=== PATIENT | male | born 1935 | race Caucasian/White ===

== ENCOUNTER 2017-04-28 15:49 | Emergency (ER) | payer MEDICARE ==
[2017-04-28] MEDS ORDERED: ELIMITE 5%60 GM T (15:52)
== END 2017-04-28 16:11 | disposition other institution (70) ==
LOC: ED 15:49
DX: R21 Rash and other nonspecific skin eruption (principal)

== ENCOUNTER 2017-06-06 14:55 | Emergency (ER) | payer MEDICARE ==
[~2017-06-06] VITALS: Ht 177.8 cm; Wt 86.2 kg
[~2017-06-06 14:55] MED LIST: ELIMITE 5%60 GM T
[2017-06-06 15:40] LABS: BASO % 0.5 % (0.0-1.0); EOS # 0.3 10*3/uL (0.0-0.4); EOS % 5.5 % (1.0-4.0); HEMATOCRIT 42.9 % (42.0-52.0); HEMOGLOBIN 13.7 g/dl (14.0-18.0); LYMPH % 48.2 % (27.0-41.0); MEAN CELL VOLUME 91.3 fl (80.0-94.0); MEAN CORPUSCULAR HGB 29.1 pg (27.0-31.0); MEAN CORPUSCULAR HGB CONC 31.9 g/dl (33.0-37.0); MEAN PLATELET VOLUME 9.9 fl (9.6-12.3); MONO # 0.5 10*3/uL (0.1-1.0); MONO % 7.3 % (3.0-9.0); NEUT # 2.4 10*3/uL (2.3-7.9); NEUT % 38.2 % (47.0-73.0); PLATELET COUNT AUTOMATED 182 10*3/uL (130-400); RED CELL DISTRI WIDTH 13.3 % (0-14.5); WHITE BLOOD COUNT 6.2 10*3/uL (4.8-10.8)
[2017-06-06 15:56] LABS: ALBUMIN 3.1 gm/dl (3.1-4.5); ALKALINE PHOSPHATASE 91 U/L (45-117); BUN 17 mg/dl (7-24); CHLORIDE 103 mmol/L (98-107); CREATININE 1.33 mg/dL (0.70-1.30); POTASSIUM 4.7 mmol/L (3.5-5.1); SGOT/AST 43 IU/L (3-35); SGPT/ALT 47 U/L (12-78); SODIUM 141 mmol/L (136-145); TOTAL PROTEIN 7.5 gm/dL (6.4-8.2)
[2017-06-06 16:04] LABS: BILIRUBIN NEGATIVE (NEGATIVE); BLOOD NEGATIVE (NEGATIVE); CLARITY CLEAR (CLEAR); COLOR YELLOW (YELLOW); GLUCOSE NEGATIVE (NEGATIVE); KETONE NEGATIVE (NEGATIVE); LEUKO ESTERASE NEGATIVE (NEGATIVE); NITRITE NEGATIVE (NEGATIVE); SPECIFIC GRAVITY 1.015 (1.005-1.030)
[2017-06-06 16:14] LABS: BACTERIA TRACE
== END 2017-06-06 18:01 | disposition home or self-care (01) ==
LOC: ED 14:55
PROVIDERS: Nurse Practitioner Family
DX: R73.9 Hyperglycemia, unspecified (principal)

== ENCOUNTER 2017-09-15 19:54 | Inpatient (IN) | payer MEDICARE ==
[~2017-09-15] VITALS: Ht 178 cm; Wt 101.3 kg
[2017-09-15 20:09] VITALS: BP 105/50
[2017-09-15 20:17] LABS: BASO % 0.3 % (0.0-1.0); EOS # 0.1 10*3/uL (0.0-0.4); HEMOGLOBIN 13.6 g/dl (14.0-18.0); LYMPH # 1.2 10*3/uL (1.3-4.4); LYMPH % 20.9 % (27.0-41.0); MEAN CELL VOLUME 88.6 fl (80.0-94.0); MEAN CORPUSCULAR HGB 28.7 pg (27.0-31.0); MEAN CORPUSCULAR HGB CONC 32.4 g/dl (33.0-37.0); MEAN PLATELET VOLUME 9.9 fl (9.6-12.3); MONO # 0.6 10*3/uL (0.1-1.0); MONO % 10.1 % (3.0-9.0); NEUT # 3.9 10*3/uL (2.3-7.9); NEUT % 67.2 % (47.0-73.0); PLATELET COUNT AUTOMATED 151 10*3/uL (130-400); RED BLOOD COUNT 4.74 10*6/uL (4.50-5.90); RED CELL DISTRI WIDTH 13.6 % (0-14.5); WHITE BLOOD COUNT 5.9 10*3/uL (4.8-10.8)
[2017-09-15 20:33] LABS: ALBUMIN 3.1 gm/dl (3.1-4.5); CREATININE 1.87 mg/dL (0.70-1.30); POTASSIUM 3.9 mmol/L (3.5-5.1); TOTAL PROTEIN 7.8 gm/dL (6.4-8.2)
[2017-09-15 21:00] VITALS: BP 101/70
[2017-09-15] MEDS ORDERED: TAMIFLU45 MG PO (22:49)
[2017-09-15 22:53] VITALS: BP 91/49
[2017-09-15 23:28] VITALS: BP 94/50
[2017-09-15] MEDS ORDERED: ASPIRIN CHEWABL81 MG PO (23:49)
[2017-09-15] MEDS ORDERED: VITAMIN D31000 UNI1 PO (23:50)
[2017-09-15] MEDS ORDERED: GLUCOTROL5 MG PO (23:50)
[2017-09-15] MEDS ORDERED: LIPITOR80 MG PO (23:50)
[2017-09-15] MEDS ORDERED: NOVOLOG100 UNIT/1 SQ (23:51)
[2017-09-15] MEDS ORDERED: LANTUS SOL100 UNIT/1 SC (23:51)
[2017-09-15] MEDS ORDERED: HYDROXYZIN50 MG/25 M PO (23:51)
[2017-09-16 00:10] VITALS: BP 90/44
[2017-09-16 01:00] VITALS: BP 93/59
[2017-09-16 07:27] LABS: BASO % 0.5 % (0.0-1.0); EOS % 0.6 % (1.0-4.0); HEMATOCRIT 40.3 % (42.0-52.0); HEMOGLOBIN 12.9 g/dl (14.0-18.0); LYMPH # 2.5 10*3/uL (1.3-4.4); LYMPH % 39.7 % (27.0-41.0); MEAN CELL VOLUME 90.6 fl (80.0-94.0); MEAN PLATELET VOLUME 10.2 fl (9.6-12.3); MONO # 0.6 10*3/uL (0.1-1.0); MONO % 9.8 % (3.0-9.0); NEUT # 3.1 10*3/uL (2.3-7.9); NEUT % 49.2 % (47.0-73.0); PLATELET COUNT AUTOMATED 127 10*3/uL (130-400); RED BLOOD COUNT 4.45 10*6/uL (4.50-5.90); RED CELL DISTRI WIDTH 13.7 % (0-14.5); WHITE BLOOD COUNT 6.3 10*3/uL (4.8-10.8)
[2017-09-16 07:49] LABS: CREATININE 1.79 mg/dL (0.70-1.30); PHOSPHOROUS 4.1 mg/dL (2.5-4.9); POTASSIUM 3.5 mmol/L (3.5-5.1); TOTAL PROTEIN 6.9 gm/dL (6.4-8.2)
[2017-09-16 07:55] LABS: FREE T4 0.83 ng/dl (0.76-1.46); THYROID STIM HORMONE (HS) 1.17 uIU/ml (0.358-4.75)
[2017-09-16 08:00] VITALS: BP 125/60
[2017-09-16 08:43] LABS: VITAMIN D, 25-HYDROXY 27.5 ng/mL (30-100)
[2017-09-16 12:00] VITALS: BP 145/57
[2017-09-16 16:00] VITALS: BP 91/75
[2017-09-16 20:00] VITALS: BP 144/52
[2017-09-17] VITALS: BP 88/52
[2017-09-17 07:10] LABS: BASO % 0.3 % (0.0-1.0); EOS # 0.1 10*3/uL (0.0-0.4); EOS % 0.5 % (1.0-4.0); HEMATOCRIT 36.7 % (42.0-52.0); HEMOGLOBIN 11.7 g/dl (14.0-18.0); LYMPH # 2.8 10*3/uL (1.3-4.4); LYMPH % 27.8 % (27.0-41.0); MEAN CELL VOLUME 91.1 fl (80.0-94.0); MEAN CORPUSCULAR HGB CONC 31.9 g/dl (33.0-37.0); MEAN PLATELET VOLUME 10.5 fl (9.6-12.3); MONO # 0.7 10*3/uL (0.1-1.0); MONO % 7.4 % (3.0-9.0); NEUT # 6.2 10*3/uL (2.3-7.9); NEUT % 62.4 % (47.0-73.0); PLATELET COUNT AUTOMATED 121 10*3/uL (130-400); RED BLOOD COUNT 4.03 10*6/uL (4.50-5.90); RED CELL DISTRI WIDTH 13.8 % (0-14.5); WHITE BLOOD COUNT 9.9 10*3/uL (4.8-10.8)
[2017-09-17 07:29] LABS: CHLORIDE 105 mmol/L (98-107); CREATININE 1.35 mg/dL (0.70-1.30); SODIUM 138 mmol/L (136-145)
[2017-09-17 07:33] LABS: BUN 24 mg/dl (7-24)
[2017-09-17 08:00] VITALS: BP 132/50
[2017-09-17 12:00] VITALS: BP 94/48
[2017-09-17 16:00] VITALS: BP 104/60
[2017-09-17 20:00] VITALS: BP 102/53
[2017-09-18] VITALS: BP 90/50
[2017-09-18 03:32] VITALS: BP 97/53
[2017-09-18 05:48] LABS: BUN 21 mg/dl (7-24); CHLORIDE 105 mmol/L (98-107); CREATININE 1.26 mg/dL (0.70-1.30); PHOSPHOROUS 1.9 mg/dL (2.5-4.9); POTASSIUM 4.2 mmol/L (3.5-5.1); SODIUM 138 mmol/L (136-145)
[2017-09-18 06:04] LABS: BASO % 0.3 % (0.0-1.0); EOS # 0.3 10*3/uL (0.0-0.4); EOS % 3.7 % (1.0-4.0); HEMATOCRIT 35.6 % (42.0-52.0); HEMOGLOBIN 11.4 g/dl (14.0-18.0); LYMPH # 3.8 10*3/uL (1.3-4.4); LYMPH % 42.7 % (27.0-41.0); MEAN CELL VOLUME 90.8 fl (80.0-94.0); MEAN CORPUSCULAR HGB 29.1 pg (27.0-31.0); MEAN PLATELET VOLUME 10.5 fl (9.6-12.3); MONO # 0.6 10*3/uL (0.1-1.0); MONO % 6.3 % (3.0-9.0); NEUT # 4.1 10*3/uL (2.3-7.9); NEUT % 46.6 % (47.0-73.0); PLATELET COUNT AUTOMATED 111 10*3/uL (130-400); RED BLOOD COUNT 3.92 10*6/uL (4.50-5.90); WHITE BLOOD COUNT 8.9 10*3/uL (4.8-10.8)
[2017-09-18 08:00] VITALS: BP 105/53
[2017-09-18] MEDS ORDERED: TAMIFLU30 MG PO (09:37)
[2017-09-18] MEDS ORDERED: ****K-Phos500 MG PO (09:39)
[2017-09-18 12:00] VITALS: BP 110/62
[2017-09-18 16:00] VITALS: BP 120/76
[2017-09-18 20:00] VITALS: BP 132/64
== END 2017-09-18 20:45 | disposition home health service (06) | DRG 189 ==
LOC: ED 19:54 → 4E 09-16 00:26 → EDHOLD 09-16 00:26 → 4E 09-16 00:50
PROVIDERS: Internal Medicine; Nurse Practitioner Family; Student in an Organized Health Care Education/Training Program
DX: J96.01 Acute respiratory failure with hypoxia (principal); N17.0 Acute kidney failure with tubular necrosis; E11.9 Type 2 diabetes mellitus without complications; D64.9 Anemia, unspecified; D72.810 Lymphocytopenia; E55.9 Vitamin D deficiency, unspecified; E78.5 Hyperlipidemia, unspecified; I10 Essential (primary) hypertension; J10.1 Influenza due to other identified influenza virus with other respiratory manifestations; R74.0 Nonspecific elevation of levels of transaminase and lactic acid dehydrogenase [LDH]; E86.0 Dehydration; Z79.4 Long term (current) use of insulin; Z85.72 Personal history of non-Hodgkin lymphomas; Z79.899 Other long term (current) drug therapy; Z79.82 Long term (current) use of aspirin

== ENCOUNTER 2018-01-21 16:21 | Inpatient (IN) | payer MEDICARE ==
[~2018-01-21] VITALS: Ht 152.4 cm; Wt 98.5 kg
[~2018-01-21 16:21] MED LIST changes: +****K-Phos500 MG PO; +ASPIRIN CHEWABL81 MG PO; +GLUCOTROL5 MG PO; +HYDROXYZIN50 MG/25 M PO; +LANTUS SOL100 UNIT/1 SC; +LIPITOR80 MG PO; +NOVOLOG100 UNIT/1 SQ; +TAMIFLU30 MG PO; +TAMIFLU45 MG PO; +VITAMIN D31000 UNI1 PO
[2018-01-21 16:26] VITALS: BP 104/53
[2018-01-21 16:51] LABS: BASO # 0.1 10*3/uL (0.0-0.1); BASO % 0.6 % (0.0-1.0); EOS # 0.3 10*3/uL (0.0-0.4); EOS % 3.5 % (1.0-4.0); HEMOGLOBIN 13.6 g/dl (14.0-18.0); LYMPH # 3.8 10*3/uL (1.3-4.4); LYMPH % 41.9 % (27.0-41.0); MEAN CELL VOLUME 90.5 fl (80.0-94.0); MEAN CORPUSCULAR HGB 28.6 pg (27.0-31.0); MEAN CORPUSCULAR HGB CONC 31.6 g/dl (33.0-37.0); MEAN PLATELET VOLUME 10.3 fl (9.6-12.3); MONO # 0.6 10*3/uL (0.1-1.0); MONO % 6.4 % (3.0-9.0); NEUT # 4.3 10*3/uL (2.3-7.9); NEUT % 47.3 % (47.0-73.0); PLATELET COUNT AUTOMATED 167 10*3/uL (130-400); RED BLOOD COUNT 4.75 10*6/uL (4.50-5.90); RED CELL DISTRI WIDTH 13.3 % (0-14.5)
[2018-01-21 17:02] LABS: BILIRUBIN NEGATIVE (NEGATIVE); BLOOD NEGATIVE (NEGATIVE); CLARITY CLEAR (CLEAR); COLOR YELLOW (YELLOW); GLUCOSE NEGATIVE (NEGATIVE); KETONE NEGATIVE (NEGATIVE); LEUKO ESTERASE NEGATIVE (NEGATIVE); NITRITE NEGATIVE (NEGATIVE); SPECIFIC GRAVITY 1.025 (1.005-1.030); UROBILINOGEN 0.2 E.U./dl (0.2-1.0)
[2018-01-21 17:06] LABS: ALBUMIN 2.9 gm/dl (3.1-4.5); CREATININE 1.4 mg/dL (0.70-1.30); POTASSIUM 3.4 mmol/L (3.5-5.1); TOTAL PROTEIN 7.4 gm/dL (6.4-8.2)
[2018-01-21 17:18] LABS: MUCOUS 1+; RBC 0-2 rbc/hpf (0-2)
[2018-01-21 17:30] VITALS: BP 104/53
[2018-01-21 18:30] VITALS: BP 116/59
[2018-01-21 19:30] VITALS: BP 120/56
[2018-01-21 19:45] VITALS: BP 127/72
[2018-01-21 20:00] VITALS: BP 127/72
[2018-01-21] MEDS ORDERED: GLIPIZIDE5 MG PO (20:58)
[2018-01-22] VITALS: BP 113/63
[2018-01-22 06:32] LABS: BASO % 0.5 % (0.0-1.0); EOS # 0.4 10*3/uL (0.0-0.4); EOS % 4.5 % (1.0-4.0); HEMATOCRIT 42.8 % (42.0-52.0); HEMOGLOBIN 13.3 g/dl (14.0-18.0); LYMPH # 3.2 10*3/uL (1.3-4.4); LYMPH % 40.6 % (27.0-41.0); MEAN CELL VOLUME 91.5 fl (80.0-94.0); MEAN CORPUSCULAR HGB 28.4 pg (27.0-31.0); MEAN CORPUSCULAR HGB CONC 31.1 g/dl (33.0-37.0); MEAN PLATELET VOLUME 10.7 fl (9.6-12.3); MONO # 0.5 10*3/uL (0.1-1.0); MONO % 6.9 % (3.0-9.0); NEUT # 3.7 10*3/uL (2.3-7.9); NEUT % 47.2 % (47.0-73.0); PLATELET COUNT AUTOMATED 155 10*3/uL (130-400); RED BLOOD COUNT 4.68 10*6/uL (4.50-5.90); RED CELL DISTRI WIDTH 13.4 % (0-14.5); WHITE BLOOD COUNT 7.8 10*3/uL (4.8-10.8)
[2018-01-22 07:06] LABS: BUN 17 mg/dl (7-24); CHLORIDE 108 mmol/L (98-107); POTASSIUM 3.5 mmol/L (3.5-5.1); SODIUM 144 mmol/L (136-145); TOTAL PROTEIN 7.3 gm/dL (6.4-8.2)
[2018-01-22 07:12] LABS: ALBUMIN 2.7 gm/dl (3.1-4.5); ALKALINE PHOSPHATASE 64 U/L (45-117); CHOLESTEROL 87 mg/dL (<200); CREATININE 1.19 mg/dL (0.70-1.30); HDL CHOLESTEROL 42 mg/dl (40-60); LDL CHOLESTEROL 30 mg/dL (9-159); PHOSPHOROUS 3.1 mg/dL (2.5-4.9); SGOT/AST 26 IU/L (3-35); SGPT/ALT 28 U/L (12-78); TRIGLYCERIDES 77 mg/dl (<150); VLDL CHOLESTEROL 15 mg/dL (6-40)
[2018-01-22 08:00] VITALS: BP 115/51
[2018-01-22] MEDS ORDERED: HYDROXYZINE PAM25 MG PO (08:29)
[2018-01-22] MEDS ORDERED: PROVENTIL HFA6.7 GM INH (08:34)
[2018-01-22] MEDS ORDERED: LANTUS SOL100 UNIT/1 SQ (08:35)
[2018-01-22] MEDS ORDERED: NOVOLOG FL100 UNIT/1 SC (08:35)
[2018-01-22 12:00] VITALS: BP 111/52
[2018-01-22 16:00] VITALS: BP 118/58
[2018-01-22 19:59] VITALS: BP 107/43
[2018-01-23] VITALS: BP 122/60
[2018-01-23 06:38] LABS: BASO # 0.1 10*3/uL (0.0-0.1); BASO % 0.8 % (0.0-1.0); EOS # 0.4 10*3/uL (0.0-0.4); EOS % 6.2 % (1.0-4.0); HEMATOCRIT 39.1 % (42.0-52.0); LYMPH # 3.1 10*3/uL (1.3-4.4); LYMPH % 49.1 % (27.0-41.0); MEAN CORPUSCULAR HGB 28.2 pg (27.0-31.0); MEAN CORPUSCULAR HGB CONC 30.7 g/dl (33.0-37.0); MEAN PLATELET VOLUME 10.6 fl (9.6-12.3); MONO # 0.4 10*3/uL (0.1-1.0); NEUT # 2.3 10*3/uL (2.3-7.9); NEUT % 36.7 % (47.0-73.0); PLATELET COUNT AUTOMATED 155 10*3/uL (130-400); RED BLOOD COUNT 4.25 10*6/uL (4.50-5.90); RED CELL DISTRI WIDTH 13.2 % (0-14.5); WHITE BLOOD COUNT 6.3 10*3/uL (4.8-10.8)
[2018-01-23 06:54] LABS: ALBUMIN 2.6 gm/dl (3.1-4.5); ALKALINE PHOSPHATASE 59 U/L (45-117); BUN 14 mg/dl (7-24); CHLORIDE 110 mmol/L (98-107); CREATININE 1.06 mg/dL (0.70-1.30); SGOT/AST 23 IU/L (3-35); SGPT/ALT 23 U/L (12-78); SODIUM 144 mmol/L (136-145); TOTAL PROTEIN 6.6 gm/dL (6.4-8.2)
[2018-01-23 08:00] VITALS: BP 100/51
[2018-01-23 12:00] VITALS: BP 117/52
[2018-01-23] MEDS ORDERED: Humalog SQ (13:24)
== END 2018-01-23 14:45 | disposition home or self-care (01) | DRG 444 ==
LOC: ED 16:21 → EDHOLD 18:53 → 5E 18:53
PROVIDERS: Internal Medicine; Nurse Practitioner Family
DX: K80.20 Calculus of gallbladder without cholecystitis without obstruction (principal); N17.0 Acute kidney failure with tubular necrosis; E44.1 Mild protein-calorie malnutrition; Z68.41 Body mass index [BMI] 40.0-44.9, adult; E87.8 Other disorders of electrolyte and fluid balance, not elsewhere classified; E78.5 Hyperlipidemia, unspecified; I10 Essential (primary) hypertension; E87.6 Hypokalemia; E11.649 Type 2 diabetes mellitus with hypoglycemia without coma; R19.7 Diarrhea, unspecified; Z79.82 Long term (current) use of aspirin; Z79.4 Long term (current) use of insulin; Z85.72 Personal history of non-Hodgkin lymphomas